=== PATIENT | female | born 1955 | race Caucasian/White ===

== ENCOUNTER 2022-01-01 07:50 | Day surgery (SDC) | payer MEDICARE ==
[~2022-01-01 07:50] MED LIST: Cefuroxime 10 MG/ML SYRINGE EYELF SCH; Lidocaine 1% PF 2 ML SDV INJECT SCH; Pilocarpine 4% Ophth Soln 15 ML Bot EYELF SCH
[2022-01-01] MEDS: Polymyxin B/Trimethoprim 10 ML Bottle EYELF SCH ×2 (08:06→08:46)
[2022-01-01] MEDS: Brimonidine 0.2% Ophth Soln 5 ML Bottle EYELF SCH ×3 (08:12→09:52)
[2022-01-01] MEDS: Phenylephrine 2.5% Ophth Soln 2 ML Bot EYELF SCH ×5 (08:17→09:33)
[2022-01-01] MEDS: Tropicamide 1% Ophth Soln 15 ML Bottle EYELF SCH ×4 (08:21→09:04)
[2022-01-01] MEDS: Tetracaine HCl/PF 0.5% 4 ML Bottle EYEBOTH SCH ×2 (09:28→09:40)
== END 2022-01-01 10:01 | disposition home or self-care (01) ==
LOC: JD.SDS 07:50
PROVIDERS: ATTEND Ophthalmology
DX: H25.813 Combined forms of age-related cataract, bilateral (principal); J44.9 Chronic obstructive pulmonary disease, unspecified; F17.200 Nicotine dependence, unspecified, uncomplicated
CPT/HCPCS: 66984; J0697; C1780

== ENCOUNTER 2022-01-29 09:05 | Day surgery (SDC) | payer MEDICARE, OTHER ==
[2022-01-29] MEDS: Polymyxin B/Trimethoprim 10 ML Bottle EYERT SCH ×4 (08:54→10:36)
[2022-01-29] MEDS: Brimonidine 0.2% Ophth Soln 5 ML Bottle EYERT SCH ×4 (09:00→10:36)
[2022-01-29] MEDS: Phenylephrine 2.5% Ophth Soln 2 ML Bot EYERT SCH ×6 (09:06→10:35)
[2022-01-29] MEDS: Tropicamide 1% Ophth Soln 15 ML Bottle EYERT SCH ×4 (09:10→09:54)
[2022-01-29] MEDS: Tetracaine HCl/PF 0.5% 4 ML Bottle EYEBOTH SCH ×5 (10:01→10:35)
[2022-01-29] MEDS: Lidocaine 1% PF 2 ML SDV INJECT SCH ×2 (10:19→10:36)
[2022-01-29] MEDS: Cefuroxime 10 MG/ML SYRINGE EYERT SCH ×2 (10:28→10:36)
[2022-01-29] MEDS: Pilocarpine 4% Ophth Soln 15 ML Bot EYERT SCH ×2 (10:29→10:36)
== END 2022-01-29 10:37 | disposition home or self-care (01) ==
LOC: JD.SDS 09:05
PROVIDERS: ATTEND Ophthalmology
DX: H25.811 Combined forms of age-related cataract, right eye (principal); H16.103 Unspecified superficial keratitis, bilateral; H16.223 Keratoconjunctivitis sicca, not specified as Sjogren's, bilateral; J44.9 Chronic obstructive pulmonary disease, unspecified; H31.011 Macula scars of posterior pole (postinflammatory) (post-traumatic), right eye; F17.210 Nicotine dependence, cigarettes, uncomplicated; Z79.899 Other long term (current) drug therapy; Z96.1 Presence of intraocular lens
CPT/HCPCS: 66984; C1780; J0697